=== PATIENT | male | born 1960 | race Caucasian/White ===

== ENCOUNTER → 2017-11-22 11:08 | Outpatient (CLI) | payer MEDICAID, SELFPAY ==
[2017-11-22 12:25] LABS: ALB/GLOB Ratio 0.9 RATIO (0.9-2.4); AST(SGOT) 49 U/L (15-37); Alanine Aminotransfer ALT/SGPT 47 U/L (16-61); Albumin, Serum 3.7 g/dL (3.2-5.0); Alkaline Phosphatase 90 U/L (45-117); Anion Gap 8 (5-15); BUN 14 mg/dL (7-18); BUN/Creat Ratio 13.2 RATIO (10-20); Calcium,Total 8.5 mg/dL (8.5-10.1); Chloride 107 mmol/L (98-107); Creatinine, Serum 1.06 mg/dL (0.70-1.30); EST Glomerular Filtration Rate 76 mL/min (>60); Est Glom Filt Rate - Afr Amer 93 mL/min (>60); Glucose 69 mg/dL (74-106); PSA,Total - Annual Screen 0.93 ng/mL (0.00-4.00); Potassium 3.9 mmol/L (3.5-5.1); Protein, Total 7.7 g/dL (6.4-8.2); Sodium Level 138 mmol/L (136-145); Thyroid Stim Hormone (TSH) 3.62 uIU/mL (0.358-3.74)
[2017-11-22 12:32] LABS: Absolute Lymphocyte Count 2.06 X10^3/ul (0.83-4.51); Absolute Neutrophil Count 6.4 X10^3/uL (2.0-7.7); Basophil# 0.04 X10^3/uL; Basophil% 0.4 % (0-1); Eosinophil# 0.13 X10^3/uL; Eosinophils% 1.4 % (0-5); Hematocrit 39.7 % (40-54); Hemoglobin 12.5 g/dl (13.0-16.5); Lymphocyte # 2.06 X10^3/ul (4.0); Lymphocyte % 22.7 % (19-41); Mean Corp Hgb Conc 31.5 g/gl (32-36); Mean Corpuscular Hgb 25.4 pg (27.0-32.0); Mean Corpuscular Volume 80.7 fL (80-94); Mean Platelet Vol. 12.5 fl (6.2-12.0); Monocyte# 0.49 X10^3/uL; Monocyte% 5.4 % (0-10); Neutrophil # 6.35 X10^3/uL (2.7-7.7); Platelet Count 274 K/mm3 (150-450); RBC Distribution Width CV 17.9 % (11.6-14.6); RBC Distribution Width SD 52.6 fl (35.1-43.9); Red Blood Count 4.92 M/mm3 (4.6-6.2); White Blood Count 9.1 K/mm3 (4.4-11.0)
[2017-11-22 12:33] LABS: POSITIVE COUNT NO; POSITIVE DIFFERENTIAL NO; POSITIVE MORPHOLOGY NO
[2017-11-23 13:39] LABS: Hep C Antibodies <0.1 s/co ratio (0.0-0.9)
== END ==
PROVIDERS: Visit Provider Family Medicine Geriatric Medicine
DX: Z00.00 Encounter for general adult medical examination without abnormal findings (principal); Z12.5 Encounter for screening for malignant neoplasm of prostate; Z12.89 Encounter for screening for malignant neoplasm of other sites
CPT/HCPCS: 36415; 80053; 84153; 84443; 85025; 86803; G0103

== ENCOUNTER → 2018-01-03 11:01 | Outpatient (CLI) | payer MEDICAID, SELFPAY ==
--- NOTE | 2018-01-03 11:07 | RAD_ITS ---
STUDY: X-RAY - PELVIS AND LEFT HIP REASON FOR EXAM: Male, 57 years old. Left hip pain. TECHNIQUE: Radiological exam, hip, unilateral, with pelvis when performed; 2 or 3 views. COMPARISON: None. FINDINGS: There is a non-specific bowel gas pattern. Normal visualized soft tissue structures. There are multiple calcified phleboliths. Normal bilateral iliac wings, sacroiliac joints and visualized sacrum. Normal bilateral superior and inferior pubic rami. Normal pubic symphysis. Normal bilateral ischial tuberosities. Normal visualized femoral head. Normal acetabulum. Normal hip joint. RAD/Hip 2-3 Views with Pelvis IMPRESSION: Unremarkable x-ray examination of the pelvis and left hip. Electronically Signed: Anay Madden MD at 10:15 EDT Tel , Service support ,
--- NOTE | 2018-01-03 11:10 | RAD_ITS ---
STUDY: X-RAY - LUMBAR SPINE REASON FOR EXAM: Male, 57 years old. Lower back pain and left hip pain TECHNIQUE: 3 view(s) of the lumbar spine were obtained. COMPARISON: 05/04/2016 FINDINGS: Slight scoliosis. Mild osteopenia. Normal lordosis. Mild anterior listhesis of L4 relative to L5 associated with facet hypertrophy without spondylolysis. Vertebral body height and alignment otherwise normal. Moderate disc narrowing L2-L3. Mild disc narrowing L4-L5. The remaining disc intervals are normal. Lower ribs, upper medial pelvis, sacrum and SI joints are unremarkable. Unremarkable bowel pattern. No acute intra-abdominal process is evident in limited evaluation. RAD/Lumbar Spine 2 or 3 Views IMPRESSION: The pattern of lumbar spondylosis is unchanged compared to prior imaging of 05/04/2016. Moderate degenerative disc disease at L2-L3. Mild disc disease with grade 1 spondylolisthesis and facet hypertrophy at L4-L5. Slight scoliosis. Electronically Signed: Avery Snowden, at 17:04 EDT Tel , Service support ,
== END ==
PROVIDERS: Visit Provider Family Medicine Geriatric Medicine
DX: M54.5 Low back pain (principal); M25.552 Pain in left hip
CPT/HCPCS: 72100; 73502

== ENCOUNTER → 2018-11-21 | Outpatient (CLI) | payer MEDICAID, SELFPAY ==
--- NOTE | 2018-11-21 11:02 | RAD_ITS ---
STUDY: X-RAY - PELVIS AND BILATERAL HIPS REASON FOR EXAM: Male, 58 years old. Bilateral hip and low back pain. TECHNIQUE: AP view of the pelvis.? 2 views of the right hip, and 2 views of the left hip were obtained. COMPARISON: None. FINDINGS: There is a non-specific bowel gas pattern. Normal visualized soft tissue structures. Normal bilateral iliac wings, sacroiliac joints and visualized sacrum. Normal bilateral superior and inferior pubic rami. Normal pubic symphysis. Normal bilateral ischial tuberosities. Normal visualized right femoral head. Normal right acetabulum. There is mild articular joint space narrowing of the right hip. Normal visualized left femoral head. Normal left acetabulum. There is mild articular joint space narrowing of the left hip. RAD/Hips B/L min 2 views w/ Pelvis IMPRESSION: Mild bilateral hip joint space narrowing with no evidence of significant osteophyte formation or acute osseous process. Electronically Signed: Tio Huddleston DO at 9:31 EDT , Service support ,
--- NOTE | 2018-11-21 11:03 | RAD_ITS ---
STUDY: X-RAY - LUMBAR SPINE REASON FOR EXAM: Male, 58 years old. Hip and low back pain. TECHNIQUE: 3 view(s) of the lumbar spine were obtained. COMPARISON: None FINDINGS: Normal lumbar lordosis. There is no substantial scoliosis. There is a normal alignment of the vertebrae. Multilevel endplate degenerative changes are present with noted decreased disc space at L2-3 with endplate sclerosis and anterior osteophyte formation. There is mild anterolisthesis of L4 and L5 likely secondary to facet arthropathy. The soft tissue structures are unremarkable. RAD/Lumbar Spine 2 or 3 Views IMPRESSION: Degenerative changes at L2-3 with likely degenerative anterolisthesis at L4-5 as above. Electronically Signed: Tio Huddleston DO at 9:32 EDT , Service support ,
== END | disposition home or self-care (01) ==
LOC: RAD 11:02
PROVIDERS: Family Provider Family Medicine Geriatric Medicine; PCP Family Medicine Geriatric Medicine; Referring Provider Family Medicine Geriatric Medicine; Visit Provider Family Medicine Geriatric Medicine
DX: M54.5 Low back pain (principal); M16.0 Bilateral primary osteoarthritis of hip
CPT/HCPCS: 72100; 73521

== ENCOUNTER → 2018-11-25 | Outpatient (CLI) | payer MEDICAID, SELFPAY ==
[2018-11-25 16:58] LABS: Absolute Neutrophil Count 9.7 X10^3/uL (2.0-7.7); Basophil# 0.02 X10^3/uL; Basophil% 0.2 % (0-1); Eosinophil# 0.01 X10^3/uL; Eosinophils% 0.1 % (0-5); Hematocrit 37.1 % (40-54); Hemoglobin 11.6 g/dl (13.0-16.5); Mean Corp Hgb Conc 31.3 g/gl (32-36); Mean Corpuscular Hgb 24.3 pg (27.0-32.0); Mean Corpuscular Volume 77.8 fL (80-94); Mean Platelet Vol. 11.2 fl (6.2-12.0); Monocyte# 0.58 X10^3/uL; Monocyte% 4.5 % (0-10); Neutrophil # 9.69 X10^3/uL (2.7-7.7); Neutrophil % 74.7 % (47-70); Platelet Count 374 K/mm3 (150-450); RBC Distribution Width CV 16.9 % (11.6-14.6); RBC Distribution Width SD 48.2 fl (35.1-43.9); Red Blood Count 4.77 M/mm3 (4.6-6.2)
[2018-11-25 17:17] LABS: POSITIVE COUNT NO; POSITIVE DIFFERENTIAL NO; POSITIVE MORPHOLOGY NO
[2018-11-25 17:21] LABS: ALB/GLOB Ratio 0.9 RATIO (0.9-2.4); AST(SGOT) 29 U/L (15-37); Alanine Aminotransfer ALT/SGPT 33 U/L (16-61); Albumin, Serum 3.7 g/dL (3.2-5.0); Alkaline Phosphatase 78 U/L (45-117); Anion Gap 10 (5-15); BUN 7 mg/dL (7-18); BUN/Creat Ratio 7.3 RATIO (10-20); Calcium,Total 8.7 mg/dL (8.5-10.1); Chloride 107 mmol/L (98-107); Creatinine, Serum 0.96 mg/dL (0.70-1.30); EST Glomerular Filtration Rate 86 mL/min (>60); Est Glom Filt Rate - Afr Amer 104 mL/min (>60); Globulin 3.9 g/dL (2.2-4.2); Glucose 108 mg/dL (74-106); PSA,Total - Annual Screen 0.82 ng/mL (0.00-4.00); Potassium 3.6 mmol/L (3.5-5.1); Protein, Total 7.6 g/dL (6.4-8.2); Sodium Level 140 mmol/L (136-145); Thyroid Stim Hormone (TSH) 4.71 uIU/mL (0.358-3.74)
== END | disposition home or self-care (01) ==
LOC: POLAB3 14:45
PROVIDERS: Family Provider Family Medicine Geriatric Medicine; PCP Family Medicine Geriatric Medicine; Visit Provider Family Medicine Geriatric Medicine
DX: R53.83 Other fatigue (principal); Z12.5 Encounter for screening for malignant neoplasm of prostate
CPT/HCPCS: 36415; 80053; 84153; 84443; 85025; G0103

== ENCOUNTER → 2018-12-25 09:01 | Outpatient (CLI) | payer MEDICAID, SELFPAY ==
--- NOTE | 2018-12-25 09:04 | CT_ITS ---
STUDY: LOW DOSE CT LUNG CANCER SCREENING REASON FOR EXAM: Male, 58 years old. 30 year pack smoking history. RADIATION DOSAGE (If Supplied By Facility): CTDIvol = ( 3.02 ) mGy, DLP = ( 119.28 ) mGycm TECHNIQUE: No contrast was administered. Low dose technique was utilized (average mAS-38 and kVp 120). 1.25 mm axial source images with a slice interval of 1.25-mm were reconstructed in lung windows. 2.5 mm axial source images with a slice interval of 2.5-mm were reconstructed in lung windows. 5.0 mm axial source images with a slice interval of 5.0-mm were reconstructed in soft tissue windows. Nodule measured using lung windows on PACS and/or independent workstation with automated measurement of minimum and maximum diameter. Nodule measurement reported as average diameter rounded to the nearest whole number. Growth is defined as an increase ins size of greater than 1.5 mm. COMPARISON: None. NODULES: Punctate calcified nodule in the lateral aspect of the left upper lobe in keeping with a small granuloma. Scarring at both lung apices. Emphysema: There is evidence of emphysema with cystic changes more prominent in the upper lobes. Aorta: Unremarkable. Coronary arteries: Unremarkable. CT/Low Dose CT Lung Screening IMPRESSION: Lung-RADS category 2 - Continue annual screening with LDCT in 12 months. IMPORTANT NOTES FOR USE: ACR Lung-RADS Version 1.0 Assessment Categories Release Date: November 30, 2013 Category: Coded 0-4 bases on nodule(s) with highest degree of suspicion. Negative screen is defined as categories 1 and 2; a positive screen is defined as categories 3 and 4. Category 3 and 4A nodules that are unchanged on interval CT should be coded as category 2, and individuals returned to screening in 12 months. Category 4X: Category 3 or 4 nodules with additional imaging findings that increase the suspicion of lung cancer, such as spiculation, GGN that doubles in size in 1 year, enlarged lymph notes, etc. Category Modifiers: S (significant finding unrelated to lung cancer) and C (prior history of treated lung cancer) may be added to the 0-4 Lung-RADS Electronically Signed: Shree James, at 15:09 EDT , Service support ,
== END ==
PROVIDERS: Family Provider Family Medicine Geriatric Medicine; PCP Family Medicine Geriatric Medicine; Referring Provider Family Medicine Geriatric Medicine; Visit Provider Family Medicine Geriatric Medicine
DX: F17.200 Nicotine dependence, unspecified, uncomplicated (principal); Z12.2 Encounter for screening for malignant neoplasm of respiratory organs
CPT/HCPCS: G0297

== ENCOUNTER → 2019-03-09 | Outpatient (CLI) | payer MEDICAID, SELFPAY ==
[2019-03-09 13:12] LABS: Thyroid Stim Hormone (TSH) 2.56 uIU/mL (0.358-3.74)
== END | disposition home or self-care (01) ==
LOC: POLAB3 10:46
PROVIDERS: Family Provider Family Medicine Geriatric Medicine; PCP Family Medicine Geriatric Medicine; Visit Provider Family Medicine Geriatric Medicine
DX: E03.9 Hypothyroidism, unspecified (principal)
CPT/HCPCS: 36415; 84443

== ENCOUNTER → 2019-07-30 11:52 | Outpatient (CLI) | payer MEDICAID, SELFPAY ==
[2019-07-30 12:34] LABS: Absolute Lymphocyte Count 1.94 X10^3/uL (0.83-4.51); Absolute Neutrophil Count 6.2 X10^3/uL (2.0-7.7); Basophil# 0.06 X10^3/uL; Basophil% 0.7 % (0-1); Eosinophil# 0.14 X10^3/uL; Eosinophils% 1.6 % (0-5); Hematocrit 35.4 % (40-54); Hemoglobin 10.9 g/dL (13.0-16.5); Lymphocyte # 1.94 X10^3/ul (4.0); Lymphocyte % 21.7 % (19-41); Mean Corp Hgb Conc 30.8 g/dL (32-36); Mean Corpuscular Hgb 24.2 pg (27.0-32.0); Mean Corpuscular Volume 78.7 fL (80-94); Mean Platelet Vol. 11.6 fl (6.2-12.0); Monocyte# 0.59 X10^3/uL; Monocyte% 6.6 % (0-10); NRBC Flagged by Analyzer 0 % (0-5); Neutrophil # 6.19 X10^3/uL (2.7-7.7); Neutrophil % 69.1 % (47-70); Platelet Count 294 K/mm3 (150-450); RBC Distribution Width CV 17.1 % (11.6-14.6); RBC Distribution Width SD 48.6 fl (35.1-43.9)
[2019-07-30 12:48] LABS: Vitamin D,25 Hydroxy 16.4 ng/mL (29.95-100.01)
[2019-07-30 13:18] LABS: AST(SGOT) 31 U/L (15-37); Alanine Aminotransfer ALT/SGPT 26 U/L (16-61); Albumin, Serum 3.5 g/dL (3.2-5.0); Alkaline Phosphatase 85 U/L (45-117); Anion Gap 9 (5-15); BUN 11 mg/dL (7-18); BUN/Creat Ratio 11.2 RATIO (10-20); Calcium,Total 8.3 mg/dL (8.5-10.1); Chloride 105 mmol/L (98-107); Creatinine, Serum 0.98 mg/dL (0.70-1.30); EST Glomerular Filtration Rate 83 mL/min (>60); Est Glom Filt Rate - Afr Amer 100 mL/min (>60); Globulin 3.6 g/dL (2.2-4.2); Glucose 128 mg/dL (74-106); Potassium 3.6 mmol/L (3.5-5.1); Protein, Total 7.1 g/dL (6.4-8.2); Sodium Level 137 mmol/L (136-145); Thyroid Stim Hormone (TSH) 2.03 uIU/mL (0.358-3.74)
== END ==
PROVIDERS: Family Provider Family Medicine Geriatric Medicine; PCP Family Medicine Geriatric Medicine; Visit Provider Family Medicine Geriatric Medicine
DX: E55.9 Vitamin D deficiency, unspecified (principal); R53.83 Other fatigue; Z12.5 Encounter for screening for malignant neoplasm of prostate
CPT/HCPCS: 36415; 80053; 82306; 84153; 84443; 85025; G0103

== ENCOUNTER 2019-09-21 09:44 | Day surgery (SDC) | payer MEDICAID, SELFPAY ==
[2019-09-02 14:42] VITALS: BMI 25.0
--- NOTE | 2019-09-04 02:21 | HP_ITS ---
Intake Vital Signs 09/02/19 BMI 25.0 09/02/19 Height 5 ft 9 in 09/02/19 Weight: 161 lb 09/02/19 BMI 23.8 09/02/19 BP 162/99 H 09/02/19 Blood Pressure Location Rt brachial 09/02/19 Position Sitting 09/02/19 Respiration 18 09/02/19 Pulse 73 09/02/19 Pulse Source Monitor 09/02/19 Temp 97.8 F 09/02/19 Temp Source Oral 09/02/19 Pulse Oximetry (%) 99 09/02/19 Oxygen Delivery Method room air Intake Visit Reasons: EGD/ Colonoscopy Chief Complaint: anemia Head Of Art Required: No Is patient in pain?: No Allergies No Known Allergies Allergy (Verified 09/02/19 14:40) Medications levothyroxine 25 mcg capsule 25 mcg PO DAILY 09/02/19 [History] pantoprazole 40 mg tablet,delayed release 40 mg PO DAILY #30 tab 09/02/19 [Rx Confirmed 09/02/19] COUNTS INCLUDE 234 BEDS AT THE [facility] Medical History GERD (gastroesophageal reflux disease) (Chronic) Anxiety (Chronic) Hypertension (Chronic) Tobacco abuse (Chronic) Peripheral neuropathy (Chronic) Anemia (Acute) Hypothyroidism (Acute) Surgical History (Updated 09/02/19 @ 14:38 by Tonja Washington) History of eye surgery (Acute) history right foot surgery (Acute) Social History (Updated 09/04/19 @ 14:21 by Lisa Khan MD) Smoking Status: Current every day smoker alcohol intake: never substance use type: does not use HPI HPI HPI: Trip DEVINE, is a 59 M who presents to the office today for HPI HPI Surgical H&P: Yes HPI: Trip DEVINE, is a 59 M who presents to the office today for anemia. Recent blood count was 10.9. Patient states he has bowel once daily denies any blood. Patient denies any family history of colon cancer. Patient states he had an EGD and colonoscopy about 10 years ago states that the EGD was negative colonoscopy was done for some abdominal pain negative per patient. Patient does state that he takes 600 mg of ibuprofen twice daily he does try to take it with food. Patient states he has had a lot of weird stomach stuff complains of increased gas and occasional right-sided pain that can happen off and on. Patient states he has had the Cologuard test done about 6 months ago which was negative. Denies any abdominal pain other than the occasional right-sided pain. Patient does state that he takes omeprazole 20 mg p.o. daily. ROS General General: Yes fatigue; no weight change, colon cancer, breast cancer or weakness HEENT HEENT: No difficulty swallowing, eye injury, eye surgery, swollen glands or hoarseness Endo Endocrine: Yes thyroid disease; no diabetes mellitus, thyroid cancer, Hair loss, heat intolerance or cold intolerance Skin Skin: No rash or changing moles Breast Breast: No left breast lump, right breast lump, nipple discharge, breast pain, abnormal mammogram, abnormal US or breast enlargement Musc Musculoskeletal: Yes rheumatoid arthritis; no back problems, arthritis, gout or joint pain Cardio Cardiovascular: No murmur, pacemaker, heart disease, atrial fibrillation, high blood pressure, heart attack, heart stent, palpitations, shortness of breat with exertion or chest pain Psych Psychiatric: No depression, anxiety or hearing voices Resp Respiratory: No shortness of breath, No sleep apnea, No cough, No COPD, No asthma, No emphysema, No wheezing Gastro Gastrointestinal: Yes abdominal pain, Yes nausea or vomiting, No diarrhea, Yes constipation, No blood in stool, Yes acid reflux, Yes hemorrhoids, No ulcers, No gallbladder problem, No black,tarry stools Anthony Hematologic: No blood thinners, No blood disorders, No bleeding, Yes anemia, No blood clots Neuro Neurologic: No system reviewed and no additional complaints, except as docu, No as per HPI, No abnormal walking, No abnormal hearing, No abnormal movements, No abnormal speech, No behavioral changes, No burning sensations, No confusion, No seizure-like activity, No unsteadiness, No dizziness, No localized weakness, No frequent falls, No headache(s), No lack of coordination, No loss of vision, No memory loss, Yes numbness, No other visual disturbances, No radiating pain, No restless legs, No sensory deficit, No fainting, Yes tingling, No tremor(s), No weakness, Yes other (stroke/TIA) Exam Const General: cooperative, comfortable, no acute distress Chest Breast Palpation: No nipple discharge Resp Effort & Inspection: normal respiratory effort Cardio Rate: regular rate Heart Sounds: no murmurs GI Inspection: non-distended Palpation: soft, no guarding, no hernias, nontender Extrem General: no clubbing, cyanosis or edema Psych Affect: normal affect Assessment & Plan Problems 1. GERD (gastroesophageal reflux disease) K21.9 2. Anemia D64.9 3. Bloating symptom R14.0 Plan Did send patient a prescription for Protonix 40 mg p.o. daily and will have him stop his omeprazole. I have discussed the above with the patient. I have offered the patient EGD and colonoscopy for evaluation. I have explained the risks/benefits of the procedure and described the procedure. I have discussed the risks with the patient, including but not limited to: infection, bleeding, perforation of the GI tract requiring emergency surgery, inability to complete the procedure, injury to any internal organs, complications of anesthesia, etc. - the patient understands and agrees to proceed. I have answered all the patient's questions to the patient's satisfaction and the patient has no further questions. The patient has been given instructions for the colon cleansing preparation. One day of clears, MiraLAX Dulcolax split prep Lisa Khan M.D. Pager: [phone] [facility] [address] [place] [address], [address] [place] [address] Office: [phone] Medications New: pantoprazole 40 mg PO DAILY 30 tabs 3RF Plan Detail Follow Up We will schedule EGD and colonoscopy Coding Level of Care Code Off vis,new,level 3 Diagnoses GERD (gastroesophageal reflux disease) K21.9 Anemia D64.9 Bloating symptom R14.0 09/04/19 1421 <Electronically signed by Lisa Maria am, MD> Date _ Lisa Khan MD I have examined the patient the following changes are noted: Patient states he has noticed the reflux has improved after changing to Protonix from the omeprazole. Patient denies any blood in the stool still.
[2019-09-21 10:12] VITALS: BP 134/88; PULSE 99; RESP 15; TEMP 528.3; TEMP 983; O2SAT 99; BMI 21.9
[2019-09-21] MEDS: Lactated Ringers 1,000 ML 100 ML IV (10:21)
--- NOTE | 2019-09-21 11:00 | EGD_PTH ---
PATIENT: Trip DEVINE LOC: EN U#:[id number] AGE/SX: 59/M ROOM: RE09/21/[address]: Dr. Lisa Khan MD : 1960 BED: DIS: 09/21/2019 SPEC #: [id number] RECD: 09/21/19 12:36 STATUS: TRINA REIsabella #: [id number] ADENIKE: 09/21/19 11:[address]: Lisa Khan DEPT: SURGICAL PATHOLOGY RECD BY: Randolph Frias ENTERED: 09/21/19 12:56 SP TYPE: EGD BIOPSY OT DR: Dr. Daniel Smith MD Tissues: A - Gastric mucous membrane B - Gastric mucous membrane Procedures: Special Stain Group II Surgery Specimen Level IV Alcian Blue/PAS (control) HEADER OPERATION: [place] [place] DIAGNOSIS: GERD, anemia, bloating TISSUE SUBMITTED: A - Antrum biopsy for histo and H. pylori, B - GE junction biopsy MICROSCOPIC DIAGNOSIS A. Gastric antrum, biopsy: Chronic gastritis. See comment. B. Gastroesophageal junction, biopsy: Gastric mucosa with chronic inflammation. No evidence of dysplasia. See comment. AM:jarek 09/22/19 COMMENT A. The results of immunohistochemistry for Helicobacter pylori will be reported separately ([id number]). B. Alcian blue/PAS stain with matched control supports the above diagnosis. MICROSCOPIC DESCRIPTION Slides are reviewed. GROSS DESCRIPTION A - Received in fixative is one container labeled with the patient's name and designated antrum biopsy. The specimen consists of one irregular fragment of light barbosa soft tissue that measures 0.7 x 0.2 x 0.1 cm. The specimen is totally submitted in one cassette. B - Received in fixative is one container labeled with the patient's name and designated GE junction biopsy. The specimen consists of one irregular fragment of light barbosa soft tissue that measures 0.5 x 0.2 x 0.1 cm. The specimen is totally submitted in one cassette. / SJ:jarek 2/17/20 TC:3 CPT: 02005 x2, 49880
--- NOTE | 2019-09-21 11:00 | IMM_PTH ---
PATIENT: Trip DEVINE LOC: EN U#:[id number] AGE/SX: 59/M ROOM: RE09/21/[address]: Dr. Lisa Khan MD : 1960 BED: DIS: 09/21/2019 SPEC #: [id number] RECD: 09/21/19 14:12 STATUS: SOUGodwin REQ #: [id number] ADENIKE: 09/21/19 11:[address]: Lisa Khan DEPT: IMMUNOHISTOCHEMISTRY RECD BY: Lorenza Ugarte ENTERED: 09/21/19 14:13 SP TYPE: IMMUNO OTHR DR: Dr. Daniel Smith MD Tissues: A - Stomach, NOS Procedures: H Pylori (initial) PHYSICIAN & INSTITUTION [place] [address] SPECIMEN INFORMATION: Tissue Source: A - Antrum biopsy Clinical Info: GERD, anemia, bloating Specimen Number: [id number] CPT code: 97427 METHODOLOGY: Deparaffinized sections of prefer/formalin-fixed tissue or PAP/DQ stained slides are incubated with monoclonal/polyclonal antibodies/oligonucleotide probes. Localization is made via biotin free immunoperoxidase method. Appropriate controls are performed and reacted as expected. Results on target cell population are indicated in the following table: RESULTS: ANTIBODY / CLONE RESULT Block A H Pylori (polyclonal) negative These tests were developed and their performance characteristics determined by [facility]. They may not have been cleared or approved by the U.S. Food and Drug Administration. The FDA has determined that such clearance or approval is not necessary. INTERPRETATION: A. Antrum biopsy: Negative for Helicobacter pylori organisms. AM:jarek 09/22/19
[2019-09-21 11:06] VITALS: BP 118/99; BP 134/88; PULSE 84; RESP 16; TEMP 37.3; O2SAT 100
[2019-09-21 11:10] VITALS: BP 118/93; BP 134/88; PULSE 77; RESP 16; O2SAT 100
--- NOTE | 2019-09-21 11:14 | OP.EGD_ITS ---
Patient Name: Trip Rodriguez Procedure Date: 09/21/2019 10:31 AM Date of : 1960 Age: 59 Procedure: Upper GI endoscopy Indications: Gastro-esophageal reflux disease Providers: Lisa Khan MD Referring MD: Lisa Khan MD Medicines: Monitored Anesthesia Care Patient Profile: This is a 59 year old male. Complications: No immediate complications. Procedure: Pre-Anesthesia Assessment: - Prior to the procedure, a History and Physical was performed, and patient medications and allergies were reviewed. The patient's tolerance of previous anesthesia was also reviewed. The risks and benefits of the procedure and the sedation options and risks were discussed with the patient. All questions were answered, and informed consent was obtained. Prior Anticoagulants: The patient has taken no previous anticoagulant or antiplatelet agents. ASA Grade Assessment: II - A patient with mild systemic disease. After reviewing the risks and benefits, the patient was deemed in satisfactory condition to undergo the procedure. After obtaining informed consent, the endoscope was passed under direct vision. Throughout the procedure, the patient's blood pressure, pulse, and oxygen saturations were monitored continuously. The gastroscope was introduced through the mouth, and advanced to the second part of duodenum. The upper GI endoscopy was accomplished without difficulty. The patient tolerated the procedure well. Scope In: 10:41:21 AM Scope Out: 10:46:13 AM Total Procedure Duration Time 0 hours 4 minutes 52 seconds Findings: The Z-line was irregular and was found 40 cm from the incisors. Biopsies were taken with a cold forceps for histology. Striped mildly erythematous mucosa without bleeding was found in the gastric antrum. Biopsies were taken with a cold forceps for histology. Biopsies were taken with a cold forceps for Helicobacter pylori cultures. The examined duodenum was normal. Mildly erythematous mucosa without bleeding was found in the gastric body. Impression: - Z-line irregular, 40 cm from the incisors. Biopsied. - Erythematous mucosa in the antrum. Biopsied. - Normal examined duodenum. - Erythematous mucosa in the gastric body. Recommendation: - Await pathology results. - Discharge patient to home. - Resume previous diet. - Continue present medications. Procedure Code(s): --- Professional --- 02377, Esophagogastroduodenoscopy, flexible, transoral; with biopsy, single or multiple Diagnosis Code(s): --- Professional --- K22.8, Other specified diseases of esophagus K31.89, Other diseases of stomach and duodenum K21.9, Gastro-esophageal reflux disease without esophagitis CPT copyright 2017 [employer]. All rights reserved. The codes documented in this report are preliminary and upon certified medical records coder review may be revised to meet current compliance requirements. MD Lisa Moses MD 09/21/2019 11:14:26 AM This report has been signed electronically. Number of Addenda: 0 Note Initiated On: 09/21/2019 10:31 AM
[2019-09-21 11:15] VITALS: BP 124/99; BP 134/88; PULSE 77; RESP 16; O2SAT 94
--- NOTE | 2019-09-21 11:15 | OP.CCLET_ITS ---
09/21/2019 Daniel Smith MD [address] [place] [address] Re : Upper GI endoscopy procedure for Trip Rodriguez Dear Dr. Smith This procedure was performed on Saturday, September 21, 2019. My impressions and recommendations are as follows: Impressions : - Z-line irregular, 40 cm from the incisors. Biopsied. - Erythematous mucosa in the antrum. Biopsied. - Normal examined duodenum. - Erythematous mucosa in the gastric body. Recommendations : - Await pathology results. - Discharge patient to home. - Resume previous diet. - Continue present medications. My findings are described in the full procedure note, which is enclosed. If I can be of further assistance, please feel free to contact me at Doctor phone number(s): , Work: . Sincerely, MD Lisa Moses MD 09/21/2019 11:14:26 AM This report has been signed electronically.
--- NOTE | 2019-09-21 11:18 | OP.COLON_ITS ---
Patient Name: Trip Rodriguez Procedure Date: 09/21/2019 10:46 AM Date of : 1960 Age: 59 Procedure: Colonoscopy Indications: Anemia Providers: Lisa Khan MD Referring MD: Lisa Khan MD Medicines: Monitored Anesthesia Care Patient Profile: This is a 59 year old male. Last Colonoscopy: 10 years ago. Complications: No immediate complications. Procedure: Pre-Anesthesia Assessment: - Prior to the procedure, a History and Physical was performed, and patient medications and allergies were reviewed. The patient's tolerance of previous anesthesia was also reviewed. The risks and benefits of the procedure and the sedation options and risks were discussed with the patient. All questions were answered, and informed consent was obtained. Prior Anticoagulants: The patient has taken no previous anticoagulant or antiplatelet agents. ASA Grade Assessment: II - A patient with mild systemic disease. After reviewing the risks and benefits, the patient was deemed in satisfactory condition to undergo the procedure. After I obtained informed consent, the scope was passed under direct vision. Throughout the procedure, the patient's blood pressure, pulse, and oxygen saturations were monitored continuously. The pediatric colonoscope was introduced through the anus and advanced to the cecum, identified by the appendiceal orifice, ileocecal valve and palpation. The colonoscopy was performed without difficulty. The patient tolerated the procedure well. The quality of the bowel preparation was good. Scope In: 10:48:55 AM Scope Withdrawal Time 0 hours 8 minutes 30 seconds Scope Out: 11:02:59 AM Total Procedure Duration Time 0 hours 14 minutes 4 seconds Findings: Hemorrhoids were found on perianal exam. External and internal hemorrhoids were found. The hemorrhoids were Grade I (internal hemorrhoids that do not prolapse) and Grade II (internal hemorrhoids that prolapse but reduce spontaneously). The entire examined colon appeared normal. Impression: - Hemorrhoids found on perianal exam. - External and internal hemorrhoids. - The entire examined colon is normal. - No specimens collected. Recommendation: - Discharge patient to home. - Resume previous diet. - Continue present medications. - Repeat colonoscopy in 10 years for screening purposes. Procedure Code(s): --- Professional --- 85461, Colonoscopy, flexible; diagnostic, including collection of specimen(s) by brushing or washing, when performed (separate procedure) Diagnosis Code(s): --- Professional --- K64.1, Second degree hemorrhoids D64.9, Anemia, unspecified CPT copyright 2017 [employer]. All rights reserved. The codes documented in this report are preliminary and upon fisher trap review may be revised to meet current compliance requirements. MD Lisa Moses MD 09/21/2019 11:17:51 AM This report has been signed electronically. Number of Addenda: 0 Note Initiated On: 09/21/2019 10:46 AM
--- NOTE | 2019-09-21 11:18 | OP.CCLET_ITS ---
09/21/2019 Daniel Smith MD [address] [place] [address] Re : Colonoscopy procedure for Trip Rodriguez Dear Dr. Smith This procedure was performed on Saturday, September 21, 2019. My impressions and recommendations are as follows: Impressions : - Hemorrhoids found on perianal exam. - External and internal hemorrhoids. - The entire examined colon is normal. - No specimens collected. Recommendations : - Discharge patient to home. - Resume previous diet. - Continue present medications. - Repeat colonoscopy in 10 years for screening purposes. My findings are described in the full procedure note, which is enclosed. If I can be of further assistance, please feel free to contact me at Doctor phone number(s): , Work: . Sincerely, MD Lisa Moses MD 09/21/2019 11:17:51 AM This report has been signed electronically.
[2019-09-21 11:21] VITALS: BP 129/99; BP 134/88; PULSE 87; RESP 16; TEMP 36.7; O2SAT 100
[2019-09-21 11:47] VITALS: BP 134/88
== END 2019-09-21 11:47 | disposition home or self-care (01) ==
LOC: EN 09:50 → AC 09:51
PROVIDERS: PCP Family Medicine Geriatric Medicine; Referring Provider Surgery; Visit Provider Surgery
PROC: 0DJD8ZZ Inspection of Lower Intestinal Tract, Via Natural or Artificial Opening Endoscopic (ICD-10-PCS; CPT 45378; principal; 2019-09-21 10:55)
DX: K21.9 Gastro-esophageal reflux disease without esophagitis (principal); D64.9 Anemia, unspecified; K29.50 Unspecified chronic gastritis without bleeding; E03.9 Hypothyroidism, unspecified; I10 Essential (primary) hypertension; Z79.899 Other long term (current) drug therapy; G62.9 Polyneuropathy, unspecified; F17.200 Nicotine dependence, unspecified, uncomplicated; R14.0 Abdominal distension (gaseous); K22.8 Other specified diseases of esophagus; K31.89 Other diseases of stomach and duodenum; K64.1 Second degree hemorrhoids; K64.4 Residual hemorrhoidal skin tags
CPT/HCPCS: 43239; 45378; 88305; 88313; 88342; J7120; J2405

== ENCOUNTER → 2019-10-02 11:59 | Outpatient (CLI) | payer MEDICAID, SELFPAY ==
[2019-09-21 10:12] VITALS: BMI 21.9
[2019-10-02 13:03] LABS: Absolute Lymphocyte Count 1.71 X10^3/uL (0.83-4.51); Absolute Neutrophil Count 5.8 X10^3/uL (2.0-7.7); Basophil# 0.04 X10^3/uL; Basophil% 0.5 % (0-1); Eosinophil# 0.26 X10^3/uL; Eosinophils% 3.1 % (0-5); Hematocrit 36.5 % (40-54); Hemoglobin 11.1 g/dL (13.0-16.5); Lymphocyte # 1.71 X10^3/ul (4.0); Lymphocyte % 20.2 % (19-41); Mean Corp Hgb Conc 30.4 g/dL (32-36); Mean Corpuscular Hgb 24.1 pg (27.0-32.0); Mean Corpuscular Volume 79.3 fL (80-94); Mean Platelet Vol. 12.4 fl (6.2-12.0); Monocyte# 0.67 X10^3/uL; Monocyte% 7.9 % (0-10); NRBC Flagged by Analyzer 0 % (0-5); Neutrophil # 5.77 X10^3/uL (2.7-7.7); Neutrophil % 68.1 % (47-70); Platelet Count 271 K/mm3 (150-450); RBC Distribution Width CV 17.2 % (11.6-14.6); RBC Distribution Width SD 49.1 fl (35.1-43.9); White Blood Count 8.5 K/mm3 (4.4-11.0)
[2019-10-02 13:29] LABS: ALB/GLOB Ratio 0.9 RATIO (0.9-2.4); AST(SGOT) 27 U/L (15-37); Alanine Aminotransfer ALT/SGPT 30 U/L (16-61); Albumin, Serum 3.4 g/dL (3.2-5.0); Alkaline Phosphatase 80 U/L (45-117); Amylase 49 U/L (25-115); Anion Gap 6 (5-15); BUN 8 mg/dL (7-18); BUN/Creat Ratio 8.6 RATIO (10-20); Calcium,Total 8.8 mg/dL (8.5-10.1); Chloride 107 mmol/L (98-107); Creatinine, Serum 0.93 mg/dL (0.70-1.30); EST Glomerular Filtration Rate 88 mL/min (>60); Est Glom Filt Rate - Afr Amer 107 mL/min (>60); Globulin 3.8 g/dL (2.2-4.2); Glucose 91 mg/dL (74-106); Lipase 192 U/L (73-393); Potassium 3.7 mmol/L (3.5-5.1); Protein, Total 7.2 g/dL (6.4-8.2); Sodium Level 140 mmol/L (136-145)
--- NOTE | 2019-10-02 13:49 | CT_ITS ---
HISTORY: RLQ PAIN, COLONOSCOPY 1 WEEK AGO ADDITIONAL HISTORY: None provided. TECHNIQUE: CT images were obtained of the abdomen and pelvis with 100 mL Isovue-300 IV contrast. Enteric contrast was given. A radiation dose optimization technique was used for this scan. Number of images including paperwork: [id number] COMPARISON: 05/15/2010 FINDINGS: LOWER THORAX: No consolidation or pleural effusion. LIVER: No concerning focal lesion. GALLBLADDER: No radiopaque calculi. BILE DUCTS: No significant biliary dilatation. SPLEEN: Unremarkable. PANCREAS: Unremarkable. ADRENAL GLANDS: Unremarkable. KIDNEYS/URETERS: Unremarkable. BOWEL: No bowel obstruction. No significant bowel wall thickening. No localized inflammation. APPENDIX: Normal. FREE FLUID: No significant free fluid. FREE AIR: None. LYMPH NODES: No pathologic appearing adenopathy. PERITONEUM, RETROPERITONEUM AND MESENTERY: Otherwise unremarkable. VASCULATURE: Atherosclerotic calcification. PELVIS: Unremarkable bladder. ABDOMINAL WALL: Unremarkable. OSSEOUS AND SOFT TISSUE STRUCTURES: No acute skeletal findings. Degenerative changes, most pronounced at L2-3. CT/Abdomen/Pelvis WITH Contrast IMPRESSION: No acute abdominopelvic abnormality. Individualized dose optimization techniques were used for this CT. at 0814 Reported and signed by: Radha Salgado MD Electronically Signed: Radha Salgado MD at 8:14 EST Tel , Service support ,
== END ==
PROVIDERS: PCP Family Medicine Geriatric Medicine; Referring Provider Family Medicine Geriatric Medicine; Visit Provider Family Medicine Geriatric Medicine
DX: R10.9 Unspecified abdominal pain (principal)
CPT/HCPCS: 36415; 74177; 80053; 82150; 83690; 85025; Q9967

== ENCOUNTER → 2019-12-08 15:41 | Outpatient (CLI) | payer MEDICAID, SELFPAY ==
[2019-12-08 16:32] LABS: Absolute Lymphocyte Count 2.27 X10^3/uL (0.83-4.51); Absolute Neutrophil Count 6.7 X10^3/uL (2.0-7.7); Basophil# 0.07 X10^3/uL; Basophil% 0.7 % (0-1); Eosinophil# 0.14 X10^3/uL; Eosinophils% 1.4 % (0-5); Hematocrit 37.5 % (40-54); Hemoglobin 11.2 g/dL (13.0-16.5); Lymphocyte # 2.27 X10^3/ul (4.0); Mean Corp Hgb Conc 29.9 g/dL (32-36); Mean Corpuscular Hgb 22.6 pg (27.0-32.0); Mean Corpuscular Volume 75.6 fL (80-94); Mean Platelet Vol. 11.6 fl (6.2-12.0); Monocyte# 0.62 X10^3/uL; Monocyte% 6.3 % (0-10); NRBC Flagged by Analyzer 0 % (0-5); Neutrophil # 6.73 X10^3/uL (2.7-7.7); Neutrophil % 68.4 % (47-70); Platelet Count 308 K/mm3 (150-450); RBC Distribution Width CV 19.6 % (11.6-14.6); RBC Distribution Width SD 51.8 fl (35.1-43.9); Red Blood Count 4.96 M/mm3 (4.6-6.2); White Blood Count 9.9 K/mm3 (4.4-11.0)
[2019-12-08 17:04] LABS: AST(SGOT) 27 U/L (15-37); Alanine Aminotransfer ALT/SGPT 27 U/L (16-61); Albumin, Serum 3.8 g/dL (3.2-5.0); Alkaline Phosphatase 86 U/L (45-117); Anion Gap 5 (5-15); BUN 10 mg/dL (7-18); BUN/Creat Ratio 9.1 RATIO (10-20); Chloride 105 mmol/L (98-107); EST Glomerular Filtration Rate 73 mL/min (>60); Est Glom Filt Rate - Afr Amer 88 mL/min (>60); Globulin 3.8 g/dL (2.2-4.2); Glucose 88 mg/dL (74-106); Potassium 3.4 mmol/L (3.5-5.1); Protein, Total 7.6 g/dL (6.4-8.2); Sodium Level 136 mmol/L (136-145); Thyroid Stim Hormone (TSH) 4.14 uIU/mL (0.358-3.74)
== END ==
PROVIDERS: PCP Family Medicine Geriatric Medicine; Referring Provider Family Medicine Geriatric Medicine; Visit Provider Family Medicine Geriatric Medicine
DX: R53.83 Other fatigue (principal); Z12.5 Encounter for screening for malignant neoplasm of prostate
CPT/HCPCS: 36415; 80053; 84153; 84443; 85025; G0103

== ENCOUNTER → 2019-12-29 11:34 | Outpatient (CLI) | payer MEDICAID, SELFPAY ==
--- NOTE | 2019-12-29 11:38 | RAD_ITS ---
STUDY: X-RAY - CERVICAL SPINE REASON FOR EXAM: Male, 59 years old. Neck pain, left arm pain and numbness x 1 week -- NKI TECHNIQUE: 3 view(s) of the cervical spine were obtained. COMPARISON: 05/04/2016 FINDINGS: There is severe multilevel spondylosis with reversal of the normal cervical lordosis. Degenerative disease is most prominent at C5-6 and C6-7. Mild anterolisthesis at C4-C5. Vertebral body heights are grossly preserved. Soft tissues are unremarkable. RAD/Cerv Spine 2 or 3 Views IMPRESSION: Severe degenerative disease of cervical spine, similar to prior. Electronically Signed: Gomez Alexandra, at 12:36 EDT Tel , Service support ,
== END ==
PROVIDERS: PCP Family Medicine Geriatric Medicine; Visit Provider Family Medicine Geriatric Medicine
DX: G54.2 Cervical root disorders, not elsewhere classified (principal)
CPT/HCPCS: 72040

== ENCOUNTER 2020-01-13 11:50 | Outpatient (RCR) | payer MEDICAID, SELFPAY ==
--- NOTE | 2020-01-13 12:53 | HP.PTEVAL_ITS ---
Patient's Visit Information Trip DEVINE is a 59 year old M referred to Physical Therapy by Dr. Daniel Smith MD with a diagnosis of Cervcial DDD and L sided radiculopathy. Date of Evaluation: 01/13/20 Physical Therapist: Rip Rowe DPT - Visit Plan Frequency: 2x /Week Duration: 4 Weeks Plan: Start with cervical distarction, PA mobs grade III/IV as tolerated. IFC to reduce symptoms. Once N/T and pain had reduced work on painfree cervical ROM. Add in scapular stability and scapular strengthening as tolerated. - Subjective Pt. is here today for his initial evaluation with diagnosis of Cervical DDD and L UE radiculopthy. Pt. reports having increased pain for months, but his L shoulder has been come worse over the last few months. Pt. reprots no mech of injury. Pt. reprots increased pain with sleeping, lifting, upper body dressing and grooming. Pt. is doing okay with driving. He does report having N/T in LUE from shoulder to elbow, frequently, but does go away. Pt does reprots being tender to the touch at times in his L sholder and proximal arm. Pt. does report having times where he drops thing and reports that his arm just stops working at times. Pt. is hopeful to reduce his symptoms in order to get back to all recreat ional activities without limitations. - Pain Cervical spine Pain Intensity (Out of 10): 0 Pain Intensity Range: 0, 4 L arm Pain Intensity (Out of 10): 2 Pain Intensity Range: 0, 5 - Objective POSTURE: PT. has FH posture, rounded shoulders, kyphotic posture noted. PALPATION: Pt. has tenderness at subacromial space, pain at C4-C7 on L side. Pt. has tenderness at levator scapulea and UT as well. NEURO: Pt. has normal DTR of BUEs. Pt. did report decreased senstation at C5-C6 dermatomal pattern. ROM: CERVICAL SPINE: flexion- nil loss NE, extension mod loss increase NW, rotation R NE full motion, rotation L min loss increase NE, SB min loss NE bilat. R shoulder- full ROM without increase in symptoms. L shoulder- flexion 150deg increase NW, Abd- 165deg NE increase NW, functional ER C5 mild increase NW, functional IR icnrease NW at anterior sholder. 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 R shoulder- 5/5 throughout; L shoulder- 4/5 throughotu increase in L shoulder pain. GAIT: - Special Tests C/S Radiculapathy - Left Spurlings: Positive C/S Radiculapathy - Right Spurlings: Negative C/S Radiculapathy - Left Cervical distraction: Negative C/S Radiculapathy - Right Cervical distraction: Negative C/S Radiculapathy - Left Relief test: Positive C/S Radiculapathy - Right Relief test: Negative L Shoulder Empty Can - SS: Positive L Shoulder Neer - Impingement: Positive L Shoulder Franks Lucian - Impingement: Positive - Goals Goal 1:: LTG: Pt. to be I with HEP. Goal Time Frame: 4-6 Weeks Goal 2:: LTG: Pt. to have increased cervical ROM to full without increase in symptoms. Goal Time Frame: 4-6 Weeks Goal 3:: LTG: Pt. to have icnreased L shoulder ROM to full without increase in symptoms. Goal Time Frame: 4-6 Weeks Goal 4:: STG: Pt. to sleep throughout the night without increase in symptoms. Goal Time Frame: 2-4 Weeks Goal 5:: LTG: Pt. to have decreased N/T of L UE by 50% . Goal Time Frame: 4-6 Weeks Goal 6:: LTG: Pt. to resume all work and recreational activities without increase in symptoms. Goal Time Frame: 4-6 Weeks - Rehabilitation Potential Physical Therapy Diagnosis: Pt. has signs and symptoms consisten with cervical DDD with L sided radiculopathy. Pt. had + L spurlings and + relief with distraction. He is limited into cervical extension and has radiation of symptoms with cervical spine movement. He does have some signs of L shoulder impingment as well. He most likely irritated his symptoms with currently movement. I would recomemend PT to reduce symptoms and get back to all recreational activities without limitations. Rehabilitation Potential: Good - Anticipated Interventions Patient/Client Instruction: Educate patient on: Condition, Plan of Care, Risk Factors, Benefits of Fitness Program For the Purpose of:: To improve decision making, To facilitate caregiver knowledge, To improve self management, To prevent re-injury, To improve ability to perform tasks related to life management, To improve tolerance to ADL's Therapeutic Exercise to Include: Strength training, Power training, Endurance training, Postural training, Passive ROM, Active ROM, Dominic Exercises, Scapular Strength/Stabilization For the Purpose of:: To decrease pain, To decrease swelling/inflammation, To increase ROM, To improve nutrient delivery to tissue, To increase oxygenation perfusion, To improve muscle performance and motor function, To improve health of tissue, To decrease soft tissue restriction, To increase flexibility/ROM Manual Therapy Techniques to Include: Mobilization, Passive ROM, Functional dry needling, Soft tissue mobilization For the Purpose of:: To decrease pain, To decrease swelling/inflammation, To increase ROM, To improve nutrient delivery to tissue, To increase oxygenation perfusion, To improve muscle performance and motor function, To improve ability to perform ADL's, To improve health of tissue, To decrease soft tissue restriction TENS: Yes IF ES: Yes Cryotherapy (ice pack, ice massage): Yes Ultrasound (thermal/non thermal): Yes Intermittent cervical traction: Yes For the Purpose of:: To decrease pain, To decrease swelling/inflammation, To increase ROM, To improve nutrient delivery to tissue, To increase oxygenation perfusion, To improve muscle performance and motor function Thank you for the opportunity to evaluate your patient. For Medicare and Medicare HMO plans, please review the plan of care and approve it. It will need to be FAXED BACK to us at [phone] for Medicare purposes. For Medicare only, by signing this I certify the plan of care. Please let me know if there are questions or concerns regarding this plan of care. Physician Signature: Date:
== END 2020-01-13 19:00 ==
LOC: PT 11:50
PROVIDERS: PCP Family Medicine Geriatric Medicine; Referring Provider Family Medicine Geriatric Medicine; Visit Provider Family Medicine Geriatric Medicine
DX: M50.10 Cervical disc disorder with radiculopathy, unspecified cervical region (principal); M48.02 Spinal stenosis, cervical region
CPT/HCPCS: 97014; 97140; 97161; G0283

== ENCOUNTER → 2020-03-30 16:21 | Outpatient (CLI) | payer MEDICAID, SELFPAY ==
[2020-03-30 17:35] LABS: Thyroid Stim Hormone (TSH) 0.98 uIU/mL (0.358-3.74)
== END ==
PROVIDERS: PCP Family Medicine Geriatric Medicine; Referring Provider Family Medicine Geriatric Medicine; Visit Provider Family Medicine Geriatric Medicine
DX: E03.9 Hypothyroidism, unspecified (principal)
CPT/HCPCS: 36415; 84443